=== PATIENT | female | born 1985 | race American Indian/Alaskan Native ===

== ENCOUNTER 2017-01-31 14:42 | Emergency (ER) | payer SELFPAY ==
[2017-01-31 15:05] VITALS: BP 111/66
[2017-01-31 15:55] LABS: Bacteria,Urine 3+ /HPF (Negative); Bilirubin,Urine NEG (Negative); Blood,Urine SM (Negative); Ketones,Urine NEG (Negative); Leukocyte Esterase,Urine MOD (Negative); Mucus,Urine 2+ /HPF; Nitrite,Urine NEG (Negative); Protein,Urine <15 mg/dL mg/dL (Negative)
--- NOTE | 2017-01-31 19:12 | Emergency Department Report ---
ED Fall HPI - General Chief Complaint: Urogenital-Female Stated Complaint: ABD PAIN/PAINFUL WHEN URINE Time Seen by Provider: 01/31/17 19:11 Source: patient Mode of arrival: Ambulatory - Related Data Allergies Allergy/AdvReac Type Severity Reaction Status Date / Time No Known Allergies Allergy Unverified 01/31/17 15:02 ED Review of Systems ROS: Stated complaint: ABD PAIN/PAINFUL WHEN URINE Other details as noted in HPI ED Past Medical Hx - Past Medical History Previous Medical History?: No - Surgical History Past Surgical History?: No - Social History Smoking Status: Never Smoker Substance Use Type: Alcohol, Non Opiate Pain ED Physical Exam - General Limitations: No Limitations ED Course Vital Signs 01/31/17 15:02 Temperature 98.1 F Pulse Rate 83 Respiratory 16 Rate Blood Pressure 111/66 O2 Sat by Pulse 99 Oximetry Critical care attestation.: If time is entered above; I have spent that time in minutes in the direct care of this critically ill patient, excluding procedure time. ED Disposition Condition: Stable Referrals: PRIMARY CARE [Primary Care Provider] - 3-5 Days
--- NOTE | 2017-01-31 19:55 | Emergency Department Report ---
ED Female HPI - General Chief complaint: Urogenital-Female Stated complaint: ABD PAIN/PAINFUL WHEN URINE Time Seen by Provider: 01/31/17 19:11 Source: patient Mode of arrival: Ambulatory Limitations: No Limitations - History of Present Illness Initial comments: PT reports that she has painful urination for one week. She states that she had some vaginal discharge that was whitish but not having any now. She says she was worried about exposure to STD but she thinks she was just nervous. She says she's been with the same partner for a while. She states she was nauseated today with no vomiting. Denies any fever or chills. Last menstrual period was 01/29/2017. Denies any foul smelling discharge. Denies any abdominal or back pain. MD Complaint: dysuria Onset/Timin -: week(s) Severity scale (0 -10): 0 Improves with: none Worsens with: urination Are you Now?: No Last Menstrual Period: 01/29/17 (H and is currently on her menses) EDC: 11/05/17 Associated Symptoms: vaginal bleeding, dysuria. denies: vaginal discharge, abdominal pain, nausea/vomiting, fever/chills, headaches, loss of appetite, hematuria, rash, seizure, shortness of breath, syncope, weakness - Related Data Sexually active: Yes (1 partner) Previous Rx's Medication Instructions Recorded Last Taken Type Nitrofurantoin [place]/M-Cryst 100 mg PO Q12HR #14 capsule 01/31/17 Unknown Rx [Macrobid CAP] Phenazopyridine [Pyridium] 100 mg PO TID PRN #15 tab 01/31/17 Unknown Rx Allergies Allergy/AdvReac Type Severity Reaction Status Date / Time No Known Allergies Allergy Unverified 01/31/17 15:02 ED Review of Systems ROS: Stated complaint: ABD PAIN/PAINFUL WHEN URINE Other details as noted in HPI Comment: All other systems reviewed and negative Constitutional: denies: chills, fever ENT: denies: throat pain Respiratory: no symptoms reported Cardiovascular: denies: chest pain, palpitations, edema, syncope Gastrointestinal: denies: abdominal pain, nausea, vomiting, diarrhea, constipation Genitourinary: dysuria. denies: urgency, frequency, hematuria, discharge, abnormal menses, dyspareunia Musculoskeletal: denies: back pain, joint swelling, arthralgia, myalgia Skin: denies: rash Neurological: denies: headache, abnormal gait, vertigo ED Past Medical Hx - Past Medical History Previous Medical History?: No - Surgical History Past Surgical History?: No - Family History Family history: no significant - Social History Smoking Status: Never Smoker Substance Use Type: Alcohol, Non Opiate Pain - Medications Home Medications: Home Medications Medication Instructions Recorded Confirmed Last Taken Type Nitrofurantoin [place]/M-Cryst 100 mg PO Q12HR #14 capsule 01/31/17 Unknown Rx [Macrobid CAP] Phenazopyridine [Pyridium] 100 mg PO TID PRN #15 tab 01/31/17 Unknown Rx ED Physical Exam - General Limitations: No Limitations General appearance: alert, in no apparent distress - Head Head exam: Present: atraumatic, normocephalic, normal inspection - Eye Eye exam: Present: normal appearance, PERRL. Absent: periorbital swelling, periorbital tenderness Pupils: Present: normal accommodation - ENT ENT exam: Present: normal exam, normal orophraynx, mucous membranes moist. Absent: TM's normal bilaterally, normal external ear exam - Neck Neck exam: Present: normal inspection, full ROM. Absent: tenderness, meningismus, lymphadenopathy - Respiratory Respiratory exam: Present: normal lung sounds bilaterally. Absent: respiratory distress, chest wall tenderness - Cardiovascular Cardiovascular Exam: Present: regular rate, normal rhythm, normal heart sounds - GI/Abdominal GI/Abdominal exam: Present: soft, normal bowel sounds. Absent: distended, tenderness, guarding, rebound, rigid - Extremities Exam Extremities exam: Present: normal inspection, full ROM, normal capillary refill. Absent: tenderness, pedal edema, joint swelling, calf tenderness - Back Exam Back exam: Present: normal inspection, full ROM. Absent: tenderness, CVA tenderness (R), CVA tenderness (L), muscle spasm, paraspinal tenderness, vertebral tenderness, rash noted - Neurological Exam Neurological exam: Present: alert, oriented X3, normal gait, reflexes normal. Absent: motor sensory deficit - Psychiatric Psychiatric exam: Present: normal affect, normal mood - Skin Skin exam: Present: warm, dry, intact, normal color. Absent: rash ED Course Vital Signs 01/31/17 15:02 Temperature 98.1 F Pulse Rate 83 Respiratory 16 Rate Blood Pressure 111/66 O2 Sat by Pulse 99 Oximetry - Reevaluation(s) Reevaluation #1: 01/31/17 20:27 Patient receive Rocephin 1 g IM in emergency room. ED Medical Decision Making - Lab Data Lab Results 01/31/17 Range/Units 15:08 Urine Color Yellow (Yellow) Urine Turbidity Cloudy (Clear) Urine pH 5.0 (5.0-7.0) Ur Specific [place] 1.021 (1.003-1.030) Urine Protein <15 mg/dl (Negative) mg/dL Urine Glucose (UA) Neg (Negative) mg/dL Urine Ketones Neg (Negative) mg/dL Urine Blood Sm (Negative) Urine Nitrite Neg (Negative) Urine Bilirubin Neg (Negative) Urine Urobilinogen 2.0 (<2.0) mg/dL Ur Leukocyte Esterase Mod (Negative) Urine WBC (Auto) 46.0 H (0.0-6.0) /HPF Urine RBC (Auto) 5.0 (0.0-6.0) /HPF U Epithel Cells (Auto) 30.0 H (0-13.0) /HPF Urine Bacteria (Auto) 3+ (Negative) /HPF Urine Mucus 2+ /HPF Urine HCG, Qual Negative (Negative) Urine culture pending - Medical Decision Making ED course: Discussed the patient that she has a urinary tract infection and there is some blood in her urine because she is on her period. Patient did not want to be tested for STD today after told her she had a urinary tract infection. She says she is on her period and prior to her. She had a little bit of whitish discharge and did not have any odor and she panicked. Severity that if she wants to have STD testing then she can go to [facility] Department if she changes her mind. Patient voiced understanding and she was treated with Rocephin 1 g IM and emergency room. Patient discharged home in stable condition with prescription for Macrobid and to follow up with her primary care physician in 7-10 days and if she does not have a primary care physician she can follow up at [facility]. I also informed her that her test was negative. Critical care attestation.: If time is entered above; I have spent that time in minutes in the direct care of this critically ill patient, excluding procedure time. ED Disposition Clinical Impression: Acute cystitis with hematuria, Dysuria Disposition: DC-01 TO HOME OR SELFCARE Is pt being admited?: No Does the pt Need Aspirin: No Condition: Stable Instructions: Urinary Tract Infection in Women (ED) Additional Instructions: Please follow up with primary care as recommended Increase fluid intake Take medication as prescribed . Using go to [facility] to have STD testing done and repeat urinalysis in 7-10 days. Prescriptions: Nitrofurantoin [place]/M-Cryst [Macrobid CAP] 100 mg PO Q12HR #14 capsule Phenazopyridine [Pyridium] 100 mg PO TID PRN #15 tab PRN Reason: Urine Burning Referrals: VASU LACKEY PA [Emergency Midlevel Provider] - 7-10 days PRIMARY CARE, [Primary Care Provider] - 7-10 days [facility] [place] [Outside] - 7-10 days Forms: Work/School Release Form(ED)
[2017-01-31] MEDS ORDERED: ROCEPHIN IM STA (20:22)
[2017-01-31] MEDS ORDERED: XYLOCAINE 1% MPF 5 mL INFILTRATI ONE (20:22)
== END 2017-01-31 20:39 | disposition home or self-care (01) ==
LOC: ED 14:42
DX: N30.01 Acute cystitis with hematuria (principal)
CPT/HCPCS: 81001; 81025; 87086; 96372; 99283; J0696